=== PATIENT | female | born 1965 | race Caucasian/White ===

== ENCOUNTER 2020-07-30 11:14 | Emergency (ER) | payer OTHER, BC ==
[2020-07-30] MEDS ORDERED: Sodium Chloride 0.9% 2.5 ML Syringe FLUSH PRN (11:16)
[2020-07-30] MEDS ORDERED: Sodium Chloride 0.9% 10 ML Syringe FLUSH PRN (11:16)
[2020-07-30] MEDS ORDERED: Ondansetron 4 MG/2 ML SDV IVPUSH ONE (11:16)
[2020-07-30] MEDS ORDERED: Morphine 4 MG/ML Syringe IM ONE (11:16)
--- NOTE | 2020-07-30 11:38 | EDM.PDOC ---
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 It makes it worse being still makes it better Review of systems: As per history of present illness and below otherwise all systems reviewed and negative. Past medical history: As per history of present illness and as reviewed below otherwise noncontributory. Surgical history: As per history of present illness and as reviewed below otherwise noncontributory. Social history: No reported history of drug or alcohol abuse. Family history: As per history of present illness and as reviewed below otherwise noncontributory. Physical exam: HEENT: Atraumatic, normocephalic, pupils reactive, negative for conjunctival pallor or scleral icterus, mucous membranes moist, throat clear, neck supple, nontender, trachea midline. Lungs: Clear to auscultation, breath sounds equal bilaterally, chest nontender. Heart: S1S2, regular, negative for clicks, rubs, or JVD. Abdomen: Soft, nondistended, nontender. Negative for masses or hepatosplenomegaly. Negative for costovertebral tenderness. Pelvis: Stable nontender. Genitourinary: Deferred. Rectal: Deferred. Extremities: Atraumatic, negative for cords or calf pain. Neurovascular unremarkable. Right hip is held in flexion it is shortened and externally rotated good distal pulse motor and sensation Neuro: Awake, alert, oriented. Cranial nerves II through XII unremarkable. Cerebellum unremarkable. Motor and sensory unremarkable throughout. Exam nonfocal. Diagnostics: [] Therapeutics: [] Impression: [] Plan: X-ray preop labs orthopedic care. [] Definitive disposition and diagnosis as appropriate pending reevaluation and review of above. Right Hip Pain Score (Numeric/FACES): 9 - Related Data Allergies Allergy/AdvReac Type Severity Reaction Status Date / Time No Known Allergies Allergy Verified 09/19/16 10:40 Home Meds: Home Meds Levothyroxine 75 mcg PO ACBREAKFAST 07/30/20 [History] hydroCHLOROthiazide [Hydrochlorothiazide] 07/30/20 [History] Review of Systems - Review of Systems Review Of Systems: See Below ED EXAM, GENERAL - Physical Exam Exam: See Below EKG INTERPRETATION EKG Interpretation Comments: EKG is normal sinus rhythm at [address]-T changes 1 unifocal PVC read and interpreted by me Course - Vital Signs Text/Narrative:: 2 view right hip 1 view pelvis read interpreted by me no acute fractures or dislocations are appreciated. I reevaluated the patient she has no pain to [employer] now she complains of pain on the posterior aspect of her thigh and a x-ray series of the femur including the knee do not demonstrate a fracture so there was a 2 view femur added read interpreted by me no acute fractures or dislocations are appreciated there either. View portable chest is been obtained no acute cardiopulmonary pathology is evident. Patient be placed in a knee immobilizer by nursing staff as well as trained on crutches she will follow-up with orthopedics. I believe she has a hamstring tear that is causing the posterior thigh pain. Last Recorded V/S: Last Vital Signs Temp 36.6 C 07/30/20 12:06 Pulse 78 07/30/20 12:06 Resp 18 07/30/20 12:06 BP 154/83 H 07/30/20 12:06 Pulse Ox 96 07/30/20 12:06 - Orders/Labs/Meds Orders: Active Orders 24 hr Category Date Time Status EKG Documentation Completion [RC] STAT Care 07/30/20 11:17 Active Femur Min 2V Rt [CR] Stat Exams 07/30/20 13:12 Ordered Hip Min 2V or 3V w Pelvis Rt [CR] Stat Exams 07/30/20 11:18 Taken Knee 1V or 2V Rt [CR] Stat Exams 07/30/20 13:12 Ordered Sodium Chloride 0.9% [Saline Flush] Med 07/30/20 11:16 Active 10 ml FLUSH ASDIRECTED PRN Sodium Chloride 0.9% [Saline Flush] Med 07/30/20 11:16 Active 2.5 ml FLUSH ASDIRECTED PRN Saline Lock Insert [OM.PC] Stat Oth 07/30/20 11:16 Ordered Medication Orders Sodium Chloride (Saline Flush) 10 ml FLUSH ASDIRECTED PRN PRN Reason: Keep Vein Open Last Admin: 07/30/20 11:53 Dose: 10 ml Documented by: PHILLIP Sodium Chloride (Saline Flush) 2.5 ml FLUSH ASDIRECTED PRN PRN Reason: Keep Vein Open Last Admin: 07/30/20 11:53 Dose: 2.5 ml Documented by: PHILLIP Labs: Laboratory Tests 07/30/20 07/30/20 07/30/20 Range/Units 11:50 11:50 11:50 WBC 6.75 (4.0-11.0) K/uL RBC 4.92 (4.30-5.90) M/uL Hgb 13.9 (12.0-16.0) g/dL Hct 42.6 (36.0-46.0) % MCV 86.6 (80.0-98.0) fL MCH 28.3 (27.0-32.0) pg MCHC 32.6 (31.0-37.0) g/dL RDW Std Deviation 43.9 (28.0-62.0) fl RDW Coeff of Ama 14 (11.0-15.0) % Plt Count 278 (150-400) K/uL MPV 9.90 (7.40-12.00) fL Neut % (Auto) 62.3 (48.0-80.0) % Lymph % (Auto) 29.9 (16.0-40.0) % Duval % (Auto) 6.1 (0.0-15.0) % Eos % (Auto) 1.6 (0.0-7.0) % Baso % (Auto) 0.1 (0.0-1.5) % Neut # (Auto) 4.2 (1.4-5.7) K/uL Lymph # (Auto) 2.0 (0.6-2.4) K/uL Duval # (Auto) 0.4 (0.0-0.8) K/uL Eos # (Auto) 0.1 (0.0-0.7) K/uL Baso # (Auto) 0.0 (0.0-0.1) K/uL Nucleated RBC % 0.0 /100WBC Nucleated RBCs # 0 K/uL INR 1.01 APTT 27.8 (18.6-31.3) SEC Sodium 138 (136-145) mmol/L Potassium 3.2 L (3.5-5.1) mmol/L Chloride 101 (98-107) mmol/L Carbon Dioxide 29.0 (21.0-32.0) mmol/L BUN 19 H (7.0-18.0) mg/dL Creatinine 1.0 (0.6-1.0) mg/dL Est Cr Clr Drug Dosing 63.37 mL/min Estimated GFR (MDRD) 57.4 ml/min Glucose 94 (74-106) mg/dL Calcium 9.1 (8.5-10.1) mg/dL Total Bilirubin 0.3 (0.2-1.0) mg/dL AST 40 H (15-37) IU/L ALT 42 (14-63) IU/L Alkaline Phosphatase 82 (46-116) U/L Total Protein 7.5 (6.4-8.2) g/dL Albumin 3.9 (3.4-5.0) g/dL Globulin 3.6 (2.6-4.0) g/dL Albumin/Globulin Ratio 1.1 (0.9-1.6) Meds: Medications Generic Name Dose Route Start Last Admin Trade Name Freq PRN Reason Stop Dose Admin Sodium Chloride 10 ml 07/30/20 11:16 07/30/20 11:53 Saline Flush FLUSH 10 ml ASDIRECTED PRN Administration Keep Vein Open Sodium Chloride 2.5 ml 07/30/20 11:16 07/30/20 11:53 Saline Flush FLUSH 2.5 ml ASDIRECTED PRN Administration Keep Vein Open Discontinued Medications Generic Name Dose Route Start Last Admin Trade Name Freq PRN Reason Stop Dose Admin Morphine Sulfate 4 mg 07/30/20 11:16 07/30/20 11:53 Morphine IM 07/30/20 11:17 4 mg ONETIME ONE Administration Ondansetron HCl 4 mg 07/30/20 11:16 07/30/20 11:53 Zofran IVPUSH 07/30/20 11:17 4 mg ONETIME ONE Administration Departure - Departure Time of Disposition: 14:22 Disposition: Home, Self-Care 01 Condition: Good Clinical Impression: Acute thigh pain - Discharge Information *PRESCRIPTION DRUG MONITORING PROGRAM REVIEWED*: Not Applicable *COPY OF PRESCRIPTION DRUG MONITORING REPORT IN PATIENT JETT: Not Applicable Instructions: Hamstring Strain Referrals: PCP,None [Primary Care Provider] - Forms: ED Department Discharge Additional Instructions: The following information is given to patients seen in the emergency department who are being discharged to home. This information is to outline your options for follow-up care. We provide all patients seen in our emergency department with a follow-up referral. The need for follow-up, as well as the timing and circumstances, are variable depending upon the specifics of your emergency department visit. If you don't have a primary care physician on staff, we will provide you with a referral. We always advise you to contact your personal physician following an emergency department visit to inform them of the circumstance of the visit and for follow-up with them and/or the need for any referrals to a consulting specialist. The emergency department will also refer you to a specialist when appropriate. This referral assures that you have the opportunity for follow-up care with a specialist. All of these measure are taken in an effort to provide you with optimal care, which includes your follow-up. Under all circumstances we always encourage you to contact your private physician who remains a resource for coordinating your care. When calling for follow-up care, please make the office aware that this follow-up is from your recent emergency room visit. If for any reason you are refused follow-up, please contact the [facility] Emergency Department at and asked to speak to the emergency department charge nurse. [facility] - Orthopedic Clinic Professional Building [address] [place] [address], [address] [place] [address] Sepsis Event Note (ED) - Evaluation Sepsis Screening Result: No Definite Risk - Focused Exam Vital Signs: Vital Signs Temp Pulse Resp BP Pulse Ox 07/30/20 12:06 36.6 C 78 18 154/83 H 96 07/30/20 11:28 36.1 C 77 18 154/79 H 97 - My Orders Last 24 Hours: My Active Orders 07/30/20 11:16 Sodium Chloride 0.9% [Saline Flush] 10 ml FLUSH ASDIRECTED PRN Sodium Chloride 0.9% [Saline Flush] 2.5 ml FLUSH ASDIRECTED PRN Saline Lock Insert [OM.PC] Stat 07/30/20 11:17 EKG Documentation Completion [RC] STAT 07/30/20 11:18 Hip Min 2V or 3V w Pelvis Rt [CR] Stat 07/30/20 13:12 Femur Min 2V Rt [CR] Stat Knee 1V or 2V Rt [CR] Stat - Assessment/Plan Last 24 Hours: My Active Orders 07/30/20 11:16 Sodium Chloride 0.9% [Saline Flush] 10 ml FLUSH ASDIRECTED PRN Sodium Chloride 0.9% [Saline Flush] 2.5 ml FLUSH ASDIRECTED PRN Saline Lock Insert [OM.PC] Stat 07/30/20 11:17 EKG Documentation Completion [RC] STAT 07/30/20 11:18 Hip Min 2V or 3V w Pelvis Rt [CR] Stat 07/30/20 13:12 Femur Min 2V Rt [CR] Stat Knee 1V or 2V Rt [CR] Stat
[2020-07-30 12:32] LABS: POTASSIUM,K 3.2 mmol/L (3.5-5.1)
--- NOTE | 2020-07-30 14:09 | CR ---
INDICATION: Trauma TECHNIQUE: Chest 1 view COMPARISON: None FINDINGS: Cardiovascular and mediastinum: Heart size and vasculature are normal in caliber and appearance. Lungs and pleural spaces: Lungs are clear. No sign of infiltrate or mass. No sign of pleural effusion. No pneumothorax. Bones and soft tissues: No significant findings. IMPRESSION: No acute or significant findings. Dictated by Sam Lundberg MD @ Jul 30 2020 2:07PM Signed by Dr. Sam Lundberg @ Jul 30 2020 2:07PM
--- NOTE | 2020-07-30 14:20 | CR ---
Indication: Injury and pain Technique: Pelvis and right hip 3 views Comparison: None Findings: Bones: Alignment is normal. No fractures or bone lesions. Joint spaces: No significant arthritic changes. Soft tissues: Unremarkable. Impression: No sign of acute injury. Dictated by Sam Lundberg MD @ Jul 30 2020 2:07PM Signed by Dr. Sam Lundberg @ Jul 30 2020 2:17PM
[2020-07-30] MEDS ORDERED: Potassium Chloride 10% 20 MEQ/15 ML Soln 15 ML UD Cup PO ONE (14:21)
[2020-07-30] MEDS ORDERED: Potassium Chloride 20 MEQ Tab.ER ONE (14:40)
[2020-07-30] MEDS ORDERED: Potassium Chloride 20 MEQ Tab.ER PO ONE (14:41)
--- NOTE | 2020-07-30 14:55 | CR ---
Indication: Pain. Technique: Right femur 4 views. Comparison: None. Findings: No acute fracture or dislocation. The hip and knee appear normally aligned. Mild degenerative changes of the hip. Hypertrophic spur arising from the superior aspect of the patella. Mild lateral compartment narrowing of the knee. No knee joint effusion. Soft tissues are unremarkable. Impression: 1. No acute findings. 2. Mild degenerative changes of the hip and knee. Dictated by Eunice Garner MD @ Jul 30 2020 2:50PM Signed by Dr. Eunice Garner @ Jul 30 2020 2:53PM
[2020-07-30 15:56] VITALS: BP 124/68; PULSE 72
[2020-07-30] MEDS ORDERED: Morphine 4 MG/ML Syringe IVPUSH ONE (18:56)
== END 2020-07-30 15:05 | disposition home or self-care (01) ==
LOC: MW.ED 11:14
DX: M79.651 Pain in right thigh (principal); M25.551 Pain in right hip; X50.1XXA Overexertion from prolonged static or awkward postures, initial encounter; Y92.129 Unspecified place in nursing home as the place of occurrence of the external cause; Y99.0 Civilian activity done for income or pay
CPT/HCPCS: 71045; 73502; 73552; 80053; 85025; 85610; 85730; 93005; 96374; 96375; 99284; A9270; J2270; J2405; 93010; 99283

== ENCOUNTER 2021-10-26 17:10 | Emergency (ER) | payer OTHER ==
[2021-10-26 17:31] VITALS: BP 177/75; PULSE 99
[2021-10-26] MEDS ORDERED: Ketorolac 60 MG/2 ML SDV IM ONE (18:48)
[2021-10-26] MEDS ORDERED: Acetaminophen/oxyCODONE 325-10 MG Tab PO ONE (18:48)
--- NOTE | 2021-10-26 19:48 | CR ---
INDICATION: Tibia pain, popping injury while dancing. Pain in lower portion of leg TECHNIQUE: Tibia-fibula radiograph 2 view right COMPARISON: None FINDINGS: Bone: No acute fractures or aggressive bone lesions are identified. Joint: The visualized knee and ankle joints are unremarkable. No significant joint effusion is seen. Soft tissue: Unremarkable. No radiopaque foreign bodies are seen. IMPRESSION: 1. No acute osseous injuries or abnormalities are noted. Prelim Report By Dr. Wil Sanders @ 10/26/2021 7:46:49 PM ADDENDUM Dictated by: MD @ 10/26/2021 19:47:07 (Electronically Signed)
--- NOTE | 2021-10-26 19:58 | EDM.PDOC ---
ED HPI GENERAL MEDICAL PROBLEM - General Chief Complaint: Lower Extremity Injury/Pain Stated Complaint: RT ANKLE INJURY Time Seen by Provider: 10/26/21 18:46 Source of Information: Reports: Patient History Limitations: Reports: No Limitations - History of Present Illness INITIAL COMMENTS - FREE TEXT/NARRATIVE: Patient presents reporting right lower calf pain. 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 She felt a pop in her lower posterior calf along with instant pain. Now she has a lot of pain there with walking or weightbearing. 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 ED EXAM, GENERAL - Physical Exam Exam: See Below Exam Limited By: No Limitations General Appearance: Alert, No Apparent Distress Ears: Normal External Exam Nose: Normal Inspection Throat/Mouth: Normal Inspection Head: Atraumatic, Normocephalic Neck: Normal Inspection Respiratory/Chest: No Respiratory Distress, Lungs Clear Cardiovascular: Normal Peripheral Pulses Extremities: Normal Inspection, Other (Right posterior calf firm mass and exquisite pain about 15 cm up from the heel. Olvera test positive.) Neurological: Alert, Oriented, Normal Cognition Psychiatric: Normal Affect, Normal Mood Skin Exam: Warm, Dry, Intact, Normal Color, No Rash Lymphatic: No Adenopathy Course - Vital Signs Last Recorded V/S: Last Vital Signs Temp 36.2 C 10/26/21 17:25 Pulse 99 10/26/21 17:25 Resp 16 10/26/21 17:25 BP 177/75 H 10/26/21 17:25 Pulse Ox 99 10/26/21 17:25 - Orders/Labs/Meds Meds: Medications Discontinued Medications Generic Name Dose Route Start Last Admin Trade Name Xavi PRN Reason Stop Dose Admin Ketorolac Tromethamine 60 mg 10/26/21 18:48 10/26/21 19:21 Ketorolac 60 Mg/2 Ml Sdv IM 10/26/21 18:49 60 mg ONETIME ONE Administration Oxycodone/Acetaminophen 1 tab 10/26/21 18:48 10/26/21 19:19 Acetaminophen/Oxycodone 325-10 Mg Tab PO 10/26/21 18:49 1 tab ONETIME ONE Administration Departure - Departure Time of Disposition: 20:24 Disposition: Home, Self-Care 01 Condition: Good Clinical Impression: Achilles tendon rupture Qualifiers: Encounter type: initial encounter Laterality: right Qualified Code(s): S86.011A - Strain of right Achilles tendon, initial encounter - Discharge Information Referrals: PCP,None [Primary Care Provider] - Forms: ED Department Discharge Additional Instructions: The following information is given to patients seen in the emergency department who are being discharged to home. This information is to outline your options for follow-up care. We provide all patients seen in our emergency department with a follow-up referral. The need for follow-up, as well as the timing and circumstances, are variable depending upon the specifics of your emergency department visit. If you don't have a primary care physician on staff, we will provide you with a referral. We always advise you to contact your personal physician following an emergency department visit to inform them of the circumstance of the visit and for follow-up with them and/or the need for any referrals to a consulting specialist. The emergency department will also refer you to a specialist when appropriate. This referral assures that you have the opportunity for follow-up care with a specialist. All of these measure are taken in an effort to provide you with optimal care, which includes your follow-up. Under all circumstances we always encourage you to contact your private physician who remains a resource for coordinating your care. When calling for follow-up care, please make the office aware that this follow-up is from your recent emergency room visit. If for any reason you are refused follow-up, please contact the [facility] Emergency Department at and asked to speak to the emergency department charge nurse. [facility] - Orthopedic Clinic Professional [address], [address] [place] [address] 1. No weightbearing right lower extremity. Ambulate with crutches only. Splint at all times 2. Pain medication as needed every 6 hours. Rx to [place] pharmacy. 3. Call the orthopedic clinic tomorrow for follow-up appointment. Sepsis Event Note (ED) - Evaluation Sepsis Screening Result: No Definite Risk - Focused Exam Vital Signs: Vital Signs Temp Pulse Resp BP Pulse Ox 10/26/21 17:25 36.2 C 99 16 177/75 H 99
== END 2021-10-26 21:00 | disposition home or self-care (01) ==
LOC: MW.ED 17:10
DX: S86.011A Strain of right Achilles tendon, initial encounter (principal); Z79.899 Other long term (current) drug therapy; X50.9XXA Other and unspecified overexertion or strenuous movements or postures, initial encounter; Y93.41 Activity, dancing
CPT/HCPCS: 29515; 73590; 96372; 99283; A9270; J1885